=== PATIENT | female | born 1960 | race Caucasian/White ===

== ENCOUNTER 2022-12-09 06:19 | Day surgery (SDC) | payer OTHER, SELFPAY ==
--- NOTE | 2022-12-08 10:19 | P.CONAN_ITS ---
Documented by User: Annette Gill NP 12/08/22 10:19 HPI - Anesthesia Eval Consult details Narrative: 62yo F for Colonoscopy FOR[facility] Past Medical History Medical History (Updated 12/08/22 @ 06:19 by Felicitas Arias, RN) Back pain Elevated cholesterol GERD (gastroesophageal reflux disease) Hypothyroid Surgical History Surgical History (Updated 12/08/22 @ 06:19 by Felicitas Arias, RN) Hx of colonoscopy Hx of esophagogastroduodenoscopy Hx of hysterectomy Hx of tubal ligation Social History Social History Patient Tobacco Use Status: Former Tobacco user Quit Date: 1984 Use of substances other than those prescribed or required for medical reasons: No Are you DNR?: No Advance Directives: No Advance Directives Information Provided: Yes Meds Allergies Allergy/AdvReac Type Severity Reaction Status Date / Time kiwi Allergy Unknown Verified 12/08/22 06:20 pollen extracts Allergy Unknown Verified 12/08/22 06:21 sulfamethoxazole Allergy Unknown Verified 12/08/22 06:20 [From Bactrim] trimethoprim [From Bactrim] Allergy Unknown Verified 12/08/22 06:20 Home Medications Medication Instructions Recorded Confirmed Last Taken Type Digestive Probiotic PO DAILY 12/08/22 Unknown History cholecalciferol (vitamin D3) 125 125 mcg PO DAILY 12/08/22 12/08/22 Unknown History mcg (5,000 unit) tablet (Vitamin D3) levothyroxine 125 mcg tablet 1 tab PO QAM 12/08/22 12/08/22 Unknown History multivitamin 1 tab PO DAILY 12/08/22 12/08/22 Unknown History omeprazole 20 mg capsule,delayed 1 cap PO DAILY 12/08/22 12/08/22 Unknown History release rosuvastatin 10 mg tablet 1 tab PO DAILY 12/08/22 12/08/22 Unknown History Exam Exam Date and Time: December 08, 2022 1019 Assessment and Plan Assessment Anesthesia Assessment: Chart Reviewed Documented by User: Marsha Fleming MD 12/09/22 07:34 [facility] Past Medical History Medical History (Updated 12/08/22 @ 06:19 by Felicitas Arias, RN) Back pain Elevated cholesterol GERD (gastroesophageal reflux disease) Hypothyroid Family History Family history of problems with anesthesia: No Surgical History Surgical History (Updated 12/08/22 @ 06:19 by Felicitas Arias, RN) Hx of colonoscopy Hx of esophagogastroduodenoscopy Hx of hysterectomy Hx of tubal ligation History of Problems with Anesthesia: No Social History Social History Patient Tobacco Use Status: Former Tobacco user Quit Date: 1984 Use of substances other than those prescribed or required for medical reasons: No Are you DNR?: No Advance Directives: No Advance Directives Information Provided: Yes Meds Allergies Allergy/AdvReac Type Severity Reaction Status Date / Time kiwi Allergy Unknown Verified 12/08/22 06:20 pollen extracts Allergy Unknown Verified 12/08/22 06:21 sulfamethoxazole Allergy Unknown Verified 12/08/22 06:20 [From Bactrim] trimethoprim [From Bactrim] Allergy Unknown Verified 12/08/22 06:20 Home Medications Medication Instructions Recorded Confirmed Last Taken Type Digestive Probiotic PO DAILY 12/08/22 Unknown History cholecalciferol (vitamin D3) 125 125 mcg PO DAILY 12/08/22 12/08/22 Unknown History mcg (5,000 unit) tablet (Vitamin D3) levothyroxine 125 mcg tablet 1 tab PO QAM 12/08/22 12/08/22 Unknown History multivitamin 1 tab PO DAILY 12/08/22 12/08/22 Unknown History omeprazole 20 mg capsule,delayed 1 cap PO DAILY 12/08/22 12/08/22 Unknown History release rosuvastatin 10 mg tablet 1 tab PO DAILY 12/08/22 12/08/22 Unknown History Exam Airway Mallampati Class: I TM Dist: >3cm Neck ROM: Full Heart: rrr Lungs: cta Assessment and Plan Assessment Anesthesia Assessment: Anesthesia Plan Discussed Final Anesthetic Review Family History of Problems with Anesthesia: No History of Problems with Anesthesia: No NPO: Yes ASA Class: I Final Preanesthetic Review: No Changes in Pt Med Stat, Meds/Allgs Chart Reviewed, Consent Obtained/Reviewed and Anes Risks/Benef Reviewed Patient Risk: Low Procedure Risk: Low Anesthetic Plan Anesthetic Plan: MAC: and Agree w/ Assess. and Plan Disposition: Standard PACU
[2022-12-09 06:34] VITALS: BP 130/66; PULSE 62; RESP 18; TEMP 36.9; O2SAT 99; BMI 29.2
[2022-12-09] MEDS: Lactated Ringers 1,000 ML 100 ML IVCONT (07:00)
--- NOTE | 2022-12-09 07:22 | MHC.SHP ---
Pre-Procedural Eval Section A Date of Service: 12/09/22 Section B Chief Complaint: screening Details of Present Illness: see H&P no changes Relevant Family History (Specify if Yes): No Relevant Social History: None Present Medications: see Short Stay Collaborative assessment Medical History: No relevant PMH History of Previous Operations: No relevant previous surgery Allergies: Allergies Allergy/AdvReac Type Severity Reaction Status Date / Time kiwi Allergy Unknown Verified 12/08/22 06:20 pollen extracts Allergy Unknown Verified 12/08/22 06:21 sulfamethoxazole Allergy Unknown Verified 12/08/22 06:20 [From Bactrim] trimethoprim [From Bactrim] Allergy Unknown Verified 12/08/22 06:20 Review of Systems Sugical H&P ROS: Negative: Constitution, Cardiovascular, Respiratory, Neurological, Psychiatric, Hem-Onc, Allergic/Immunologic, Gastrointestinal, Genitourinary, Musculoskeletal, Integumentary, Endocrine and Eyes/Ears/Nose/Throat Exam Surgical H&P Exam: Normal: HEENT, Normal: Heart, Normal: Lungs, Normal: Extremities, Normal: Abdomen, Normal: Skin and Normal: Neurological Plan Diagnosis/Plan: Unchanged I have reviewed the history and physical and performed a pertinent physical examination on my patient. No changes have occurred unless specified. Time Spent With Patient Time: Total time managing care of this patient today ____ minutes.
[2022-12-09 08:04] VITALS: BP 104/59; PULSE 58; RESP 17; TEMP 36.6; O2SAT 100
--- NOTE | 2022-12-09 08:08 | PM.OP ---
Brief Operative Note Date of Service: 12/09/22 Pre-op diagnosis: screening Post-op diagnosis: same Procedure: colonoscopy Surgeon: David Laird Anesthesia: MAC Was an Park Activities Coordinator used for this Procedure?: No Estimated blood loss (mL): 2 Pathology: other Condition: stable Disposition: PACU
[2022-12-09 08:19] VITALS: BP 126/66; PULSE 56; RESP 16; TEMP 36.4; O2SAT 100
--- NOTE | 2022-12-09 08:28 | OP_ITS ---
SURGEON: David Laird MD INDICATIONS: Colon cancer screening and prior history of adenomatous colon polyps. PREOPERATIVE DIAGNOSIS: POSTOPERATIVE DIAGNOSIS: PROCEDURE PERFORMED: Colonoscopy to the terminal ileum with snare polypectomy. ESTIMATED BLOOD LOSS: COMPLICATIONS: ANESTHESIA: Monitored anesthesia care. ASSISTANTS: SPECIMENS: DESCRIPTION OF PROCEDURE: The procedure was performed on 12/09/2021. A history and physical were performed. The risks and benefits of the procedure were explained to the patient. Informed consent was obtained. The patient was placed in the left lateral decubitus position. A digital rectal exam was performed and was found to be normal. The Olympus pediatric videocolonoscope was inserted into the rectum and advanced to the cecum without difficulty. The cecum was identified by transillumination, palpation, and identification of ileocecal valve. Examination was performed. The scope was removed. She tolerated the procedure well and was taken to recovery area in stable condition. FINDINGS: The terminal ileum was normal. Visualized colonic mucosa was within normal limits without evidence of masses or ulcers. There was an 8 mm polyp in the right colon, which was removed with a snare. The submucosa underneath this appeared consistent with a lipoma. The polyp was recovered by suction and the scope was removed and reinserted. No other polyps were identified. Retroflexed examination showed small internal hemorrhoids. There was mild sigmoid diverticulosis. The quality of prep was good. IMPRESSION: Colon polyp. RECOMMENDATION: Follow up with the biopsy results. MD PRICE Man/JAMAL / [id number] MTDD
[2022-12-09 08:33] VITALS: BP 119/57; PULSE 57; RESP 16; O2SAT 100
== END 2022-12-09 08:45 | disposition home or self-care (01) ==
PROVIDERS: PCP Internal Medicine; Visit Provider Internal Medicine Gastroenterology
PROC: 0DJD8ZZ Inspection of Lower Intestinal Tract, Via Natural or Artificial Opening Endoscopic (ICD-10-PCS; CPT 45378; principal; 2022-12-09 07:30)
DX: Z12.11 Encounter for screening for malignant neoplasm of colon (principal); Z86.010 Personal history of colon polyps; D12.2 Benign neoplasm of ascending colon; K57.30 Diverticulosis of large intestine without perforation or abscess without bleeding; K64.8 Other hemorrhoids; K21.9 Gastro-esophageal reflux disease without esophagitis; E78.00 Pure hypercholesterolemia, unspecified; E03.9 Hypothyroidism, unspecified; M54.9 Dorsalgia, unspecified; Z79.899 Other long term (current) drug therapy; Z88.1 Allergy status to other antibiotic agents
CPT/HCPCS: 45385; 88305